=== PATIENT | female | born 2000 | race American Indian/Alaskan Native ===

== ENCOUNTER 2018-04-28 17:52 | Emergency (ER) | payer SELFPAY ==
[2018-04-28 20:25] VITALS: BP 110/62
--- NOTE | 2018-04-28 20:27 | Emergency Department Report ---
Blank Doc - Documentation Documentation: 17 y/o female presents to ed c/o of dizzness and nausea. No fever or chills. took a positive home test and wanted to confirm
[2018-04-28 21:26] LABS: Bilirubin,Urine NEG (Negative); Blood,Urine NEG (Negative); Color,Urine Yellow (Yellow); Mucus,Urine FEW /HPF; Protein,Urine <15 mg/dL mg/dL (Negative)
[2018-04-28 21:31] LABS: HCG Qualitative,Urine Positive (Negative)
== END 2018-04-29 01:05 | disposition left against medical advice (07) ==
LOC: ED 17:52
DX: R11.0 Nausea (principal); Z53.21 Procedure and treatment not carried out due to patient leaving prior to being seen by health care provider
CPT/HCPCS: 81001; 81025

== ENCOUNTER 2018-08-30 22:17 | Emergency (ER) | payer SELFPAY ==
[2018-08-30] MEDS ORDERED: TYLENOL PO ONE (22:56)
[2018-08-30] MEDS ORDERED: TYLENOL ONE (22:59)
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
[2018-08-31 05:29] VITALS: BP 122/66
== END 2018-08-31 02:30 | disposition home or self-care (01) ==
LOC: ED 22:17
DX: S39.012A Strain of muscle, fascia and tendon of lower back, initial encounter (principal); Z88.2 Allergy status to sulfonamides; M54.2 Cervicalgia; M25.562 Pain in left knee; M79.601 Pain in right arm; V49.3XXA Car occupant (driver) (passenger) injured in unspecified nontraffic accident, initial encounter; Y93.89 Activity, other specified; Y92.89 Other specified places as the place of occurrence of the external cause; Y99.8 Other external cause status
CPT/HCPCS: 72040; 72100